=== PATIENT | male | born 1975 | race Caucasian/White ===

== ENCOUNTER 2021-10-20 20:23 | Outpatient (REF) | payer MEDICAID, SELFPAY ==
[2021-10-20 20:58] LABS: Hemoglobin A1C 5.1 % (<5.7)
[2021-10-20 21:03] LABS: ALT 44 U/L (16-63); AST 17 U/L (15-37); Alkaline Phosphatase 53 U/L (46-116); Anion Gap 7.7 mmol/L (3-11); BUN 19 mg/dL (7-18); Bilirubin, Total 0.2 mg/dL (0.2-1.0); CO2 31.3 mmol/L (21.0-32.0); CREATININE 1.1 mg/dL (0.70-1.30); Calcium 9.7 mg/dL (8.5-10.1); Calculated LDL 172 mg/dL (<100); Chloride 105 mmol/L (98-107); Cholesterol 269 mg/dL (<200); Glucose 89 mg/dL (74-106); HDL Cholesterol 43 mg/dL (40-60); Potassium 4.5 mmol/L (3.5-5.1); Sodium 144 mmol/L (136-145); Total Protein 7.3 g/dL (6.4-8.2); Triglyceride 273 mg/dL (<150)
[2021-10-20 21:10] LABS: Lipase 147 U/L (73-393)
== END 2021-10-20 20:24 | disposition home or self-care (01) ==
LOC: NCHCN 20:23
PROVIDERS: PCP Internal Medicine; Visit Provider Nurse Practitioner Family
DX: Z13.220 Encounter for screening for lipoid disorders (principal); Z13.1 Encounter for screening for diabetes mellitus; R10.9 Unspecified abdominal pain; Z00.8 Encounter for other general examination
CPT/HCPCS: 80053; 80061; 83690; 83036